=== PATIENT | male | born 1950 | race Caucasian/White ===

== ENCOUNTER → 2024-07-07 | Outpatient (CLI) | payer MEDICARE, BC, SELFPAY ==
[2024-07-07 13:49] LABS: Prostate Specific Antigen 4.87 ng/mL (0-4.00)
== END | disposition home or self-care (01) ==
LOC: COPL 12:51
PROVIDERS: PCP Family Medicine; Referring Provider Family Medicine; Visit Provider Family Medicine
DX: Z12.5 Encounter for screening for malignant neoplasm of prostate (principal)
CPT/HCPCS: 36415; 84153

== ENCOUNTER → 2024-08-01 | Outpatient (CLI) | payer MEDICARE, BC, SELFPAY ==
[2024-08-01 12:18] LABS: Collection Type, Urine Clean Catch
[2024-08-01 14:02] LABS: Bilirubin,Urine Negative (Negative); Blood,Urine Negative (Negative); Clarity,Urine Clear (Clear/Hazy); Color,Urine Yellow (Lt Yel-Yel); Glucose, Urine Negative (Negative); Ketones,Urine Negative (Negative); Leukocyte Esterase,Urine Negative (Negative); Nitrite,Urine Negative (Negative); Protein,Urine Negative (Neg - Trace); RBC,Urine 1 /hpf (0-3); Specific Gravity,Urine 1.027 (1.001-1.035); Squamous Epithelial Cell,Urine < 1 /hpf (0-5); Urobilinogen,Urine Negative mg/dL (0.0-1.0); WBC,Urine < 1 /hpf (0-5)
== END | disposition home or self-care (01) ==
LOC: COPL 11:45 → SLDO 12:04
PROVIDERS: PCP Family Medicine; Referring Provider Family Medicine; Visit Provider Family Medicine
DX: N39.0 Urinary tract infection, site not specified (principal)
CPT/HCPCS: 81001; 87086

== ENCOUNTER 2025-03-23 10:18 | Inpatient (IN) | payer MEDICARE, BC, SELFPAY ==
[2025-03-23] VITALS (13 sets, daily range): BP systolic 72–151; BP diastolic 46–99; PULSE 61–96; RESP 14–91; TEMP 36.3–37.8; O2SAT 92–99; BMI 20.7; BMI 30.1
--- NOTE | 2025-03-23 10:23 | EDNOTE_ITS ---
ED Fall Injury RME/HPI General Chief Complaint: Fall Stated Complaint: FALL Time Seen by Provider: 03/23/25 10:23 Arrival date/time: 03/23/25 10:18 Mode of arrival: EMS Limitations: no limitations RME / HPI RME / HPI Narrative: DR. KIBMLE MAIN ED EVALUATION: Patient is a 75 yo male with medical history notable for hypertension, recent emergency department plan of AMS after having had an unwitnessed fall. Per EMS patient was found on the ground by his . Patient does not remember falling. Unclear if there was any prodromal symptoms prior to the fall. Per EMS patient had repetitive questioning on scene and did not want to come to the hospital. Spoke to the patient over the phone, while on the phone, I advised him that I was concerned about his fall that I did not have an etiology for the fall. While on the phone patient stated that he did not know that he fell. The paramedics and his had already previously told him multiple times that he had fallen. I let the paramedics know that I am concerned that the patient has repetitive questioning and speech and for this reason it is important that he be transported to the emergency department for evaluation. Patient came to the emergency department willingly. complaint: fall Onset (ago): minute(s) Fall from: standing Fall witnessed: no Place fall occurred: home Loss of consciousness: yes Prolonged down time: no Related Data Home Medications ?Medication ?Instructions ?Recorded ?Confirmed amlodipine 5 mg tablet 5 mg PO QDAY 03/23/25 rivastigmine tartrate 1.5 mg 1.5 mg PO BID 03/23/25 capsule vortioxetine 5 mg tablet 5 mg PO DAILY 03/23/2503/23 (Trintellix) Allergies Allergy/AdvReac Type Severity Reaction Status Date / Time No Known Allergies Allergy Verified 04/02/24 06:42 Review of Systems Review of Systems Systems Reviewed: All systems reviewed, normal except as documented Past Medical History Past Medical History CARDIAC: Negative Congestive Heart Failure RESPIRATORY: Negative Chronic Obstructive Pulmonary Disease (COPD) GENITOURINARY: Negative Renal Disease ENDOCRINE: Negative Diabetes Mellitus Type 1 or Diabetes Mellitus Type 2 Social History SMOKING STATUS: Never smoker SUBSTANCE USE: does not use ALCOHOL: Never ED Exam General Limitations: Present no limitations General appearance: Present alert Head Head exam: Present other (1 cm laceration nonbleeding to the left forehead, no postauricular hematoma, no raccoon eyes, intact extraocular muscle movements, pupils equal round and reactive to light) Eye Eye exam: Present PERRL ENT ENT exam: Present normal exam Neck Neck exam: Present normal inspection Chest Chest inspection: Present normal inspection Respiratory Respiratory exam: Present normal lung sounds bilaterally Cardiovascular Cardiovascular exam: Present normal rhythm Abdominal Exam Abdominal exam: Present soft; Absent distention or tenderness Extremities Exam Extremities exam: Present normal inspection, full ROM and tenderness (Nontender to palpation on the right upper extremity nor bilateral lower extremities, no tenderness to palpation in the entire spine, no ttp pelvis, 2+ DP pulses, 2+ radial pulses bilateral upper extremities and lower extremity symmetric intact) Neurological Exam Neurological exam: Present other (Alert and oriented to person, not oriented to situation nor place. Repetitive questioning, forgets conversations that occurred a few minutes prior) Psychiatric Psychiatric exam: Present normal affect Skin Skin exam: Present warm Course Quality Measures none Orders Category Date Time Status Admit to Inpatient Status Routine Admission 03/23/25 13:47 Active Patient Condition Routine Admission 03/23/25 13:47 Ordered Activity as Tolerated Routine Care 03/23/25 13:48 Ordered Bedside COVID-19 Antigen Test NOW Care 03/23/25 10:31 Active Bedside Influenza A&B Antigen Test NOW Care 03/23/25 10:31 Completed EKG (ED ONLY) *Do not use* NOW Care 03/23/25 10:59 Completed Notify provider NEEDED Care 03/23/25 13:47 Active Obtain weight NOW Care 03/23/25 13:46 Active Seizure precautions NOW Care 03/23/25 13:48 Active Diet Regular Diet 03/23/[address] cervical spine wo con Stat Exams 03/23/25 10:[address] head/brain wo con Stat Exams 03/23/25 10:30 Completed CXR [XR chest 1V] Stat Exams 03/23/25 10:31 Completed EKG (ED Only) Stat Exams 03/23/25 10:59 Draft XR humerus LT MIN 2V Stat Exams 03/23/25 10:32 Completed Acetaminophen Stat Lab 03/23/25 10:50 Completed Ammonia Stat Lab 03/23/25 10:50 Completed CBC Stat Lab 03/23/25 10:50 Completed CK [Creatine Kinase] Stat Lab 03/23/25 13:14 Completed CMP [Comprehensive Metabolic Panel] Stat Lab 03/23/25 10:50 Completed CRP [C-Reactive Protein] Stat Lab 03/23/25 13:14 Completed Drug Screen,Urine Stat Lab 03/23/25 12:14 Completed ESR [Sed Rate (ESR)] Stat Lab 03/23/25 13:14 Completed INR [Prothrombin Time with INR] Stat Lab 03/23/25 10:50 Completed Lactate (Lactic Acid) Stat Lab 03/23/25 13:14 Results Mag [Magnesium] Stat Lab 03/23/25 13:14 Completed Phosphorous Stat Lab 03/23/25 13:14 Completed Prolactin* Stat Lab 03/23/25 13:14 Received Salicylate Stat Lab 03/23/25 10:50 Completed T4 (Thyroxine) Stat Lab 03/23/25 10:50 Completed Thyroid Stimulating Hormone Stat Lab 03/23/25 10:50 Completed Troponin I Stat Lab 03/23/25 10:50 Completed Type and Screen Stat Lab 03/23/25 13:13 Ordered UA, C/S IF [Urinalysis, C/S if Indicated] Stat Lab 03/23/25 12:14 Completed VBG [Venous Blood Gas] Stat Lab 03/23/25 13:14 Completed Vitamin B12 Stat Lab 03/23/25 13:14 Completed Acetaminophen Tab [Tylenol Tab] Med 03/23/25 13:46 Active 650 mg PO Q6H PRN Midazolam Inj [Versed Inj] Med 03/23/25 11:41 Discontinued 2 mg IVP X1 ONE Midazolam Inj [Versed Inj] Med 03/23/25 11:41 Discontinued 4 mg .ROUTE .STK-MED ONE Midazolam Inj [Versed Inj] Med 03/23/25 11:41 Discontinued 4 mg IVP X1 ONE Ringers Lactated 1000 ml [Lactated Ringers] 1,000 ml Med 03/23/25 13:06 Discontinued IV 999 mls/hr TET,DIP/PERT AC (Adult)-Tdap [Boostrix Adult (Tdap) Med 03/23/25 10:31 Discontinued Vacc] 0.5 ml IMI .ONCE ONE levETIRAcetam INJ [Keppra Inj] Med 03/23/25 11:42 Discontinued 1,000 mg IVP X1 ONE Code Status Routine Oth 03/23/25 13:46 Ordered Oxygen Delivery PRN RT 03/23/25 13:46 Active Vital Signs Vital signs: Vital Signs Temperature 97.6 F 03/23/25 10:25 Pulse Rate 64 03/23/25 10:25 Respiratory Rate 18 03/23/25 10:25 Blood Pressure 135/90 H 03/23/25 10:25 Pulse Oximetry (%) 95 03/23/25 10:25 Oxygen Delivery Method Room Air 03/23/25 10:25 Fall MDM Narrative MDM Narrative:: Patient is a 75-year-old male to the emergency department after having had an unwitnessed fall at home and having repetitive questioning. Vital signs and exam as listed. Concern for ACS arrhythmia electrolyte abnormality urinary tract infection, intracranial hemorrhage intracranial injury cervical spine injury, fracture of the left upper extremity among others. Ordered labs, CT brain, CT cervical spine EKG as well as x-ray of the left upper extremity. 1140: Patient had a seizure, orders made at this time are congruent with seizure protocol. Patient data External records reviewed:: [facility] previous records Clinical information provided by:: patient Social determinants that could affect healthcare access:: none Patient has the following chronic illnesses:: hypertension How is presenting disease/condition affected by chronic disease/condition?: uneffected by Evaluation data The following diagnostics were reviewed and interpreted by me:: lab results, radiology exam(s) and EKG tracing(s) (My interpretation: EKG performed at 1104 hours, sinus rhythm, rate 66, normal intervals, non specific ST-T wave changes, no cardiac alert) Lab and/or radiology exams considered but not ordered:: none Interpretation Summary: Procedure(s): XR humerus LT MIN 2V Accession Number(s): [id number] cc: Lalito Hill MD; Yolis Kimble MD~ Examination: Humerus 2 views left Technique: Humerus, AP lateral 2 views Date and time of exam: March 23, 2025 1044 hours INDICATIONS: Injury to the arm today, arm pain. FINDINGS: No shoulder fracture or shoulder dislocation Shaft of the humerus intact IMPRESSION: No acute fracture Dictated By: Lalito Hill MD Procedure(s): XR chest 1V Accession Number(s): [id number] cc: Lalito Hill MD; Yolis Kimble MD~ Examination: AP chest single view TECHNIQUE: AP portable upright chest single view Date and time: March 23, 2025 1050 hours INDICATIONS: Weakness today. FINDINGS: Minor subsegmental atelectasis right base Normal heart size Ectatic thoracic aorta. No pneumonia or pulmonary edema IMPRESSION: No active disease. Dictated By: Lalito Hill MD Procedure(s): CT head/brain wo con Accession Number(s): [id number] cc: Lalito Hill MD; Yolis Kimble MD~ Examination: CT brain head without contrast. 2-D sagittal coronal reconstructions Date and time of exam:March 23, 2025 1122 hours INDICATIONS: Syncopal episode and fall this morning CTDI: vol (mGy):54.2 DLP: (mGycm):1150 Technique: Multiple CT axial sections of the brain have been obtained, 5 mm slice thickness. Contrast has not been administered. 2-D sagittal, coronal reconstructions have been obtained Low dose protocols were performed. One or more of the following dose reduction techniques were used; automated exposure control, adjustment of the mA and/or KV according to patient size, use of iterative reconstruction technique. Findings: No significant ventricular enlargement. Moderate cerebral atrophy Intra-axial or extra-axial hemorrhage density is not seen. No mass effect or midline shift Basal cisterns are not remarkable. Fourth ventricle is midline. Cranial vault intact. Impression: Negative for acute hemorrhage, mass effect or midline shift Dictated By: Lalito Hill MD Procedure(s): CT cervical spine [facility] Accession Number(s): [id number] cc: Lalito Hill MD; Yolis Kimble MD~ Examination: CT cervical spine without contrast 2-D sagittal reconstructions 2-D coronal reconstructions 3-D reconstructions. Exam date and time:March 23, 2025, 1122 hours INDICATIONS: Ground-level fall today CTDI:vol (mGy) 17.8 DLP: (mGycm) 4713 Technique: Multiple 2 mm axial sections of the cervical spine have been obtained. The coronal and sagittal reconstructions have been obtained. 3-D reconstructions have been obtained. Low dose protocols were performed. One or more of the following dose reduction techniques were used; automated exposure control, adjustment of the mA and/or KV according to patient size, use of iterative reconstruction technique. Findings: Axial sections demonstrate intact base of the skull. C1 exhibit satisfactory relationship to the odontoid. No acute cervical vertebral body fracture seen. Alignment posterior spinous processes satisfactory. Impression: No acute cervical fracture. Dictated By: Lalito Hill MD Medications / Prescriptions Medications or Prescriptions considered but not ordered:: none Medication administrations:: Medication Administration History Acetaminophen (Acetaminophen 325 Mg Tablet) 650 mg PO Q6H PRN PRN Reason: Fever >101.5 Stop: 04/22/25 13:45 Heparin Sodium (Porcine) (Heparin Sod Inj 5000 Unit/Ml Vial) 5,000 unit SC Q12HR [facility] Stop: 04/06/25 13:59 Midazolam HCl (Midazolam Inj 1 Mg/Ml Vial 2 Ml) 1 mg IVP Q15MIN PRN PRN Reason: BREAKTHROUGH SEIZURES Stop: 03/28/25 13:54 Ondansetron HCl (Ondansetron Inj 2 Mg/Ml Inj 2 Ml) 4 mg IVP Q6H PRN; Protocol PRN Reason: NAUSEA OR VOMITING Stop: 04/22/25 13:50 Pantoprazole Sodium (Pantoprazole Inj 40 Mg Vial) 40 mg IVP QDAY [facility] Stop: 04/23/25 08:59 Discontinued Medications Diphtheria/Tetanus/Acell Pertussis (Diphth,Pertuss(Acell),Tet Vac 0.5 Ml Syr- Adult) 0.5 ml IMi .ONCE ONE Stop: 03/23/25 10:32 Last Admin: 03/23/25 10:49 Dose: 0.5 ml Documented By: JEREMIE Lactated Ringer's (Lactated Ringers) 1,000 mls @ 999 mls/hr IV .Q1H1M ONE Stop: 03/23/25 14:06 Last Admin: 03/23/25 13:12 Dose: 999 mls/hr Documented By: JEREMIE Levetiracetam (Levetiracetam Inj 100 Mg/Ml Vial 5ml) 1,000 mg IVP X1 ONE Stop: 03/23/25 11:43 Last Admin: 03/23/25 12:06 Dose: 1,000 mg Documented By: JEREMIE Midazolam HCl (Midazolam Inj 1 Mg/Ml Vial 2 Ml) 2 mg IVP X1 ONE Stop: 03/23/25 11:42 Last Admin: 03/23/25 12:00 Dose: Not Given Documented By: JEREMIE Non-Admin Reason: Duplicate Medication on eMAR Midazolam HCl (Midazolam Inj 1 Mg/Ml Vial 2 Ml) 4 mg IVP X1 ONE Stop: 03/23/25 11:42 Last Admin: 03/23/25 11:42 Dose: 4 mg Documented By: JOSE ALFREDO Midazolam HCl (Midazolam Inj 1 Mg/Ml Vial 2 Ml) Confirm Administered Dose 4 mg .ROUTE .STK-MED ONE Stop: 03/23/25 11:42 Last Admin: 03/23/25 11:49 Dose: Not Given Documented By: JOSE ALFREDO Non-Admin Reason: Duplicate Medication on eMAR Potassium Phos/Sodium Phos ([facility] 1 Packet (1.5 Gm)) 1 packet PO X1 ONE Stop: 03/23/25 13:58 see above Consultations Consultation(s) initiated? (list below): Yes Consultation #1 (Physician, Specialty, Details): Discussed test HPI, PMHx, lab, radiology results and/or management with resident working with the hospitalist. Will admit for further evaluation and management. Accepts patient for admission. Diagnosis Fall Differential Diagnosis: other (Syncope, traumatic brain injury, intracranial hemorrhage, CVA/ TIA.) Most likely diagnosis given after review of the tests above:: Seizure Fall Head laceration Flue Admission Indicated Admission indicated?: indicated Admission Request Was there a request for admission?: Yes Admission Attestation Admission request attestation: Discussed case with [] from Hospitalist service regarding admission. Discussed patients ED course, exam findings, labs, and radiology results. The Hospitalist [agrees,declines] to accept the patient for admission. Disposition Plan Disposition Plan: Admit Critical Care Time Critical Care Time Critical Care Time: Yes Total Critical Care Time (min.): 40 Attestation: The high probability of sudden, clinically significant deterioration in the patient?s condition required the highest level of my preparedness to intervene urgently. The services I provided to this patient were to treat and/or prevent clinically significant deterioration. Services included the following: chart data review, reviewing nursing notes and/or old charts, documentation time, healthcare consultant collaboration regarding findings and treatment options, medication orders and management, direct patient care, vital sign assessments and ordering, interpreting and reviewing diagnostic studies and lab tests. Aggregate critical care time includes only time during which I was engaged in work directly related to the patient?s care, as described above, whether at bedside or elsewhere in the Emergency Department. It did not include time spent performing other reported procedures or the services of residents, students, jennifer ses or physician assistants. Discharge Plan Plan Patient Disposition: Admit Acute Care w/in Hospital Problem List Clinical Impression: Seizure, Fall, Laceration of head, Flu
--- NOTE | 2025-03-23 10:30 | XR_ITS ---
Examination: CT brain head without contrast. 2-D sagittal coronal reconstructions Date and time of exam:March 23, 2025 1122 hours INDICATIONS: Syncopal episode and fall this morning CTDI: vol (mGy):54.2 DLP: (mGycm):1150 Technique: Multiple CT axial sections of the brain have been obtained, 5 mm slice thickness. Contrast has not been administered. 2-D sagittal, coronal reconstructions have been obtained Low dose protocols were performed. One or more of the following dose reduction techniques were used; automated exposure control, adjustment of the mA and/or KV according to patient size, use of iterative reconstruction technique. Findings: No significant ventricular enlargement. Moderate cerebral atrophy Intra-axial or extra-axial hemorrhage density is not seen. No mass effect or midline shift Basal cisterns are not remarkable. Fourth ventricle is midline. Cranial vault intact. Impression: Negative for acute hemorrhage, mass effect or midline shift
--- NOTE | 2025-03-23 10:30 | XR_ITS ---
Examination: CT cervical spine without contrast 2-D sagittal reconstructions 2-D coronal reconstructions 3-D reconstructions. Exam date and time:March 23, 2025, 1122 hours INDICATIONS: Ground-level fall today CTDI:vol (mGy) 17.8 DLP: (mGycm) 4713 Technique: Multiple 2 mm axial sections of the cervical spine have been obtained. The coronal and sagittal reconstructions have been obtained. 3-D reconstructions have been obtained. Low dose protocols were performed. One or more of the following dose reduction techniques were used; automated exposure control, adjustment of the mA and/or KV according to patient size, use of iterative reconstruction technique. Findings: Axial sections demonstrate intact base of the skull. C1 exhibit satisfactory relationship to the odontoid. No acute cervical vertebral body fracture seen. Alignment posterior spinous processes satisfactory. Impression: No acute cervical fracture.
--- NOTE | 2025-03-23 10:31 | XR_ITS ---
Examination: AP chest single view TECHNIQUE: AP portable upright chest single view Date and time: March 23, 2025 1050 hours INDICATIONS: Weakness today. FINDINGS: Minor subsegmental atelectasis right base Normal heart size Ectatic thoracic aorta. No pneumonia or pulmonary edema IMPRESSION: No active disease.
--- NOTE | 2025-03-23 10:32 | XR_ITS ---
Examination: Humerus 2 views left Technique: Humerus, AP lateral 2 views Date and time of exam: March 23, 2025 1044 hours INDICATIONS: Injury to the arm today, arm pain. FINDINGS: No shoulder fracture or shoulder dislocation Shaft of the humerus intact IMPRESSION: No acute fracture
[2025-03-23] MEDS: DIPHTH,PERTUSS(ACELL),TET VAC 0.5 ML SYR- ADULT IMi (10:49)
[2025-03-23 10:59] LABS: Basophils # (Auto) 0.1 Thou/mm3 (0.0-0.2); Basophils % (Auto) 1 % (0-2.5); Eosinophils # (Auto) 0.2 Thou/mm3 (0.0-0.5); Eosinophils % (Auto) 2 % (0-10); Hematocrit 46.1 % (41.0-53.0); Hemoglobin 15.6 g/dL (13.5-16.0); Immature Granulocytes Auto 0.03 Thou/mm3 (0.00-0.00); Lymphocytes # (Auto) 3.2 Thou/mm3 (1.0-4.8); Lymphocytes % (Auto) 40 % (10-50); Mean Corpuscular HGB Conc 33.8 g/dl (31.0-37.0); Mean Corpuscular Hemoglobin 29.6 pg (25.0-35.0); Mean Corpuscular Volume 88 fL (80-100); Monocytes # (Auto) 0.7 Thou/mm3 (0.0-0.8); Monocytes % (Auto) 9 % (0-12); Neutrophils # (Auto) 3.8 Thou/mm3 (1.8-7.7); Neutrophils % (Auto) 47 % (37-80); Nucleated Red Blood Cell # 0.00 Thou/mm3 (0.00-0.00); Nucleated Red Blood Cell % 0 /100 WBC (0); Platelet Count 158 Thou/mm3 (140-440); RDW Standard Deviation 42.0 fL (35.1-43.9); Red Blood Count 5.27 Miln/mm3 (4.50-5.90); White Blood Count 8.0 Thou/mm3 (3.8-10.6)
--- NOTE | 2025-03-23 10:59 | EKG_ITS ---
[facility] Test Date: 2025-03-23 Pat Name: KATIE CHOI Department: Room: - Gender: Male Magnetic Observer: : 1950 Requested By: Yolis Menchaca Order Number: [id number] Reading MD: Yolis Menchaca Measurements Intervals [place] Rate: 66 P: 232 [place]: 107 QRS: -16 QRSD: 89 T: 25 QT: 402 QTc: 424 Interpretive Statements ECTOPIC ATRIAL RHYTHM WITH SHORT TX INTERVAL ABNORMAL RHYTHM ECG No previous ECG available for comparison /store/S0/[id number]/ecg/[id number].pdf
[2025-03-23 11:15] LABS: INR 1.0 (0.9-1.3); Prothrombin Time 11.0 Seconds (9.0-12.2)
[2025-03-23 11:18] LABS: Ammonia < 10 uMol/L (11-32)
[2025-03-23 11:20] LABS: T4 (Thyroxine) 6.1 mcg/dL (4.5-10.9)
[2025-03-23 11:24] LABS: Acetaminophen < 2.0 mcg/mL (10.0-20.0); Alanine Aminotransferase 18 U/L (10-49); Albumin, Serum 4.5 gm/dL (3.4-4.8); Albumin/Globulin Ratio 2.4 (1.2-2.2); Alkaline Phosphatase 52 U/L (46-116); Anion Gap 11 (7-16); Aspartate Amino Transferase 19 U/L (0-34); BUN/Creatinine Ratio 11 Ratio (12-20); Bilirubin,Total 0.9 mg/dL (0.3-1.2); Blood Urea Nitrogen 13 mg/dL (9-23); Calcium 9.7 mg/dL (8.3-10.6); Calcium (Corrected) 9.7 mg/dL (8.5-10.1); Carbon Dioxide 27.1 mMol/L (20.0-31.0); Chloride 105 mMol/L (98-107); Creatinine (Component) 1.2 mg/dL (0.6-1.3); Estimated Creatinine Clearance 60.7 mL/min (>60); Globulin 1.9 gm/dL (2.3-3.5); Glucose 100 mg/dL (74-106); Osmolality,Calculated 285 (275-295); Potassium 3.4 mMol/L (3.4-5.1); Salicylate < 3.0 mg/dL; Sodium 143 mMol/L (136-145); Thyroid Stimulating Hormone 4.45 uIU/mL (0.55-4.78); Total Protein 6.4 gm/dL (5.7-8.2); Troponin I 0.027 ng/mL (0.0-0.045); eGFR > 60 See Note
[2025-03-23] MEDS: MIDAZOLAM INJ 1 MG/ML VIAL 2 ML 4 MG IVP (11:42)
--- NOTE | 2025-03-23 11:42 | PC.NURSE ---
Patient had a full tonic clonic seizure lasting approx 1 minute. Patient turned to side, O2 placed. MD called to bedside. Med orders received.
[2025-03-23] MEDS: levETIRAcetam INJ 100 MG/ML VIAL 5ML 1000 MG IVP (12:06)
[2025-03-23 12:16] LABS: Collection Type, Urine Catheter; Squamous Epithelial Cell,Urine 0 /hpf (0-5)
[2025-03-23 12:37] LABS: Amphetamine/Methamp Scrn,U Negative (Negative); Barbiturate Screen,Urine Negative (Negative); Benzodiazepines Screen,Urine Negative (Negative); Benzoylecgonine Screen, Ur Negative (Negative); Fentanyl Screen,Urine Negative (Negative); Opiate Screen,Urine Negative (Negative); THC Screen,Urine Negative (Negative)
[2025-03-23 12:56] LABS: Bilirubin,Urine Negative (Negative); Blood,Urine Negative (Negative); Clarity,Urine Clear (Clear/Hazy); Color,Urine Yellow (Lt Yel-Yel); Culture Indicated,Urine Not Indicated; Glucose, Urine Negative (Negative); Hyaline Casts,Urine < 1 /hpf (0-1); Ketones,Urine Negative (Negative); Leukocyte Esterase,Urine Negative (Negative); Nitrite,Urine Negative (Negative); PH,Urine 6.5 (5.0-7.0); Protein,Urine 1+ (Neg - Trace); RBC,Urine 2 /hpf (0-3); Specific Gravity,Urine 1.017 (1.001-1.035); Urobilinogen,Urine Negative mg/dL (0.0-1.0); WBC,Urine 4 /hpf (0-5)
[2025-03-23] MEDS: RINGERS LACTATED 1000 ML 1,000 ML 999 ML IV (13:12)
[2025-03-23 13:28] LABS: Base Excess, Venous -5 (-3-3); O2 Saturation, Venous 83 % (96-97); PCO2, Venous 39 mmHg (36-56); PO2, Venous 50 mmHg (15-58); pH, Venous 7.33 (7.33-7.66)
[2025-03-23 13:42] LABS: Lactate (Lactic Acid) 4.5 mMol/L (0.4-2.0)
[2025-03-23 13:52] LABS: C-Reactive Protein < 0.5 mg/dL (0.0-0.9); Creatine Kinase 73 U/L (34-171); Magnesium 2.0 mg/dL (1.6-2.6); Phosphorous 1.9 mg/dL (2.4-5.1)
--- NOTE | 2025-03-23 13:59 | ESHP_ITS ---
<Statement entered by Jackie Aguillon MD - 03/24/25 10:28> Patient was seen and examined at bedside. I agree on the assessment and plan on this note as documented by resident Luzmaria Thomason MD PGY1. 75-year-old male with past medical history of hypertension and ?dementia/depression admitted to [facility] for seizures management, patient had 2 episodes of seizures 1 witnessed by ED staff was given 4 mg Versed for management in the ED, was consulted by emergency department for admission. While assessing at bedside patient's MAP noted to be 55, was given 1 L LR bolus on pressure bag, CT head was negative considering patient did hit head during the seizure episode, bedside FAST exam done with ED attending Dr. Lamin otto. MAP stable post fluid resuscitation, will start on maintenance fluid. Admitted to telemetry for seizure workup, patient also noted to be influenza A positive started on Tamiflu, EEG ordered, neurology consulted for further recommendations. Disposition telemetry pending neurology workup. Case discussed with attending Dr. Dhiraj Aguillon MD PGY-2 Documentation for date of: 03/23/25 HPI History of Present Illness Chief complaint: altered mental status and seizure History of present illness: Mr. Trinidad is a 75 year of male with past medical medical history of hypertension BIBA to ED on 03/23/2025 for altered mental status after unwitnessed fall. Per , this morning while the patient was getting ready in the bathroom she heard a thump. She went to check up on him and found the patient lying on the floor on the left side. Per patient before the seizure episode he had no headache, lightheadedness, weakness, shortness of breath no tinnitis. He also had a history of seizure in 2023 for which he followed with neurology and was discharged with no anti-seizure medications in the ED during the postictal phase patient was speaking incoherently and drowsy. Patient had tonic-clonic seizure that lasted about 50 seconds witnessed by ED staff. No urinary or fecal incontinence post-seizure. During examination patient was drowsy with low MAP averaging 58 and BP 72/51 mmHg, after 1x ringers lactate fluids patient MAP increase significantly and became alert and conversant. He denies chills, fatigue, shortness of breath, chest pain and bodyaches. He only endorses left shoulder pain due to the fall. ED Course: -Initial vitals were blood pressure 151/81, pulse 64, RR 18, temp 97.6, O2 sat 96% on 15 L OxyMax -Labs significant for bun/cr 11, ammonia< 10, Lactate 4.5, Phos 1.9, UA negative, Utox negative - Imaging included spine CT no acute cervical fracture, head CT negative for acute hemorrhage, chest x-ray showed mild segmental atelectasis right base, humerus x-ray shows no shoulder fracture or dislocation, EKG normal -In the ED, patient was given 1 LR bolus, 4 mg Versed, 1x Keppra, Tdap vaccine -Patient was admitted for AMS and seizures work up and management. Review of Systems Review of systems otherwise negative except what is mentioned above. Past Medical History: Hypertension Family History: Noncontributory Surgical History: N/A Social History: Denies history of smoking, denies current alcohol use, denies recreational drug use Current Medications: (Source: Patient) amlodipine 5 mg, rivastigmine 1.5 mg twice daily, vortioxetine 5 mg daily Allergies: No known drug allergies Exam Vital Signs Temp Pulse Resp BP Pulse Ox O2 Del Method O2 Flow Rate 97.6 F 66 18 127/89 H 98 Oxy Mask 8 03/23/25 10:25 03/23/25 13:30 03/23/25 13:30 03/23/25 13:30 03/23/25 13:30 03/23/25 13:30 03/23/25 13:30 Narrative Exam Physical Exam General: Initially drowsy but now awake and in no acute distress. Conversational and non-toxic appearing. HEENT: 1cm laceration nonbleeding to left forehead. Normocephalic, mucous membranes moist. Heart: Regular rate and rhythm, normal S1 and S2, no murmurs. Lungs: Clear to auscultation with no wheezing or crackles. Abdomen: Soft, nondistended, nontender, positive bowel sounds. ?No guarding or rebound tenderness. Neurologic: Alert and oriented x3, no gross neurological deficit, and patient able to move all 4 extremities. Extremities: limited range of motion of Left shoulder(due to fall) No edema. Skin: No rash or ecchymoses. Results: Labs 03/24/25 05:31 03/24/25 05:31 Labs: Short CBC 03/23/25 Range/Units 10:50 WBC 8.0 (3.8-10.6) Thou/mm3 Hgb 15.6 (13.5-16.0) g/dL Hct 46.1 (41.0-53.0) % Plt Count 158 (140-440) Thou/mm3 BMP 03/23/25 10:50 Sodium 143 Potassium 3.4 Chloride 105 Carbon Dioxide 27.1 BUN 13 Creatinine 1.2 Glucose 100 Calcium 9.7 Cardiac Enzymes 03/23/25 03/23/25 Range/Units 10:50 13:14 Total Creatine Kinase 73 (34-171) U/L Troponin I 0.027 (0.0-0.045) ng/mL Liver Function 03/23/25 Range/Units 10:50 Total Bilirubin 0.9 (0.3-1.2) mg/dL AST 19 (0-34) U/L ALT 18 (10-49) U/L Alkaline Phosphatase 52 (46-116) U/L Albumin 4.5 (3.4-4.8) gm/dL Urine 03/23/25 Range/Units 12:14 Urine Color Yellow (Lt Yel-Yel) Urine Clarity Clear (Clear/Hazy) Urine pH 6.5 (5.0-7.0) Ur Specific [place] 1.017 (1.001-1.035) Urine Protein 1+ A (Neg - Trace) Urine Glucose (UA) Negative (Negative) ABG Interpretation ABG results: 03/23/25 13:14 VBG pH 7.33 VBG pCO2 39 VBG pO2 50 VBG Base Excess -5 L Quality Measures Quality Measures none Advance care planning discussed with:: patient and spouse Medications Home Medications and Allergies Home Medications ?Medication ?Instructions ?Recorded ?Confirmed ?Type amlodipine 5 mg tablet 5 mg PO QDAY 03/23/25 History rivastigmine tartrate 1.5 mg 1.5 mg PO BID 03/23/25 History capsule vortioxetine 5 mg tablet 5 mg PO DAILY 03/23/2503/23 History (Trintellix) Allergies Allergy/AdvReac Type Severity Reaction Status Date / Time No Known Allergies Allergy Verified 04/02/24 06:42 Visit Medications Acetaminophen (Acetaminophen 325 Mg Tablet) 650 mg PO Q6H PRN PRN Reason: Fever >101.5 Stop: 04/22/25 13:45 Heparin Sodium (Porcine) (Heparin Sod Inj 5000 Unit/Ml Vial) 5,000 unit SC Q12HR DINO Stop: 04/06/25 13:59 Lactated Ringer's (Lactated Ringers) 1,000 mls @ 999 mls/hr IV .Q1H1M ONE Stop: 03/23/25 14:06 Last Admin: 03/23/25 13:12 Dose: 999 mls/hr Midazolam HCl (Midazolam Inj 1 Mg/Ml Vial 2 Ml) 1 mg IVP Q15MIN PRN PRN Reason: BREAKTHROUGH SEIZURES Stop: 03/28/25 13:54 Ondansetron HCl (Ondansetron Inj 2 Mg/Ml Inj 2 Ml) 4 mg IVP Q6H PRN; Protocol PRN Reason: NAUSEA OR VOMITING Stop: 04/22/25 13:50 Pantoprazole Sodium (Pantoprazole Inj 40 Mg Vial) 40 mg IVP QDAY [facility] Stop: 04/23/25 08:59 Potassium Phos/Sodium Phos (Naph,[facility] Mbdb 1 Packet (1.5 Gm)) 1 packet PO X1 ONE Stop: 03/23/25 13:58 Discontinued Medications Diphtheria/Tetanus/Acell Pertussis (Diphth,Pertuss(Acell),Tet Vac 0.5 Ml Syr- Adult) 0.5 ml IMi .ONCE ONE Stop: 03/23/25 10:32 Last Admin: 03/23/25 10:49 Dose: 0.5 ml Levetiracetam (Levetiracetam Inj 100 Mg/Ml Vial 5ml) 1,000 mg IVP X1 ONE Stop: 03/23/25 11:43 Last Admin: 03/23/25 12:06 Dose: 1,000 mg Midazolam HCl (Midazolam Inj 1 Mg/Ml Vial 2 Ml) 2 mg IVP X1 ONE Stop: 03/23/25 11:42 Last Admin: 03/23/25 12:00 Dose: Not Given Midazolam HCl (Midazolam Inj 1 Mg/Ml Vial 2 Ml) 4 mg IVP X1 ONE Stop: 03/23/25 11:42 Last Admin: 03/23/25 11:42 Dose: 4 mg Assessment & Plan Plan Mr. Trinidad a 75-year-old male past medical significant for hypertension BIBA to ED on 03/23/25 for altered mental status and unwitnessed seizure. Admitted for seizure workup and management. #Witnessed tonic-clonic seizures episode #Acute Encephalopathy 09/04 # Influenza A positive #Status post fall Patient has history of seizure episodes in 2023 for which he follows with Dr. Smalls. Followed outpatient after 1 episode of seizure in 2023 not on any seizure medication. Today patient has weakness around 4 in the morning, and weakness, possibly had a seizure episode at home per family. Witnessed tonic-clonic seizure in the ED. On admission mental status was altered and oriented x2. Underlying acute encephalopathy likely due to seizures, possible underlying viral infectious etiology, Head CT is negative, electrolytes within normal limit, utox negative Patient currently requiring supplemental oxygen, likely secondary to Versed, will wean off Chest x-ray unremarkable for underlying pneumonia, incidentally found to be flu positive in the emergency department Reports fall at home, complains of some pain in left shoulder, cervical spine CT and humerus x-ray unremarkable Plan - Started on oseltamivir 75 mg p.o. twice daily (03/23/25)- - Ringer lactate maintenance 1L IVF - Diazepam 5 mg IVP Q15min PRN for seizure - EEG ordered - Neurology consulted, recommendation appreciated - CBC, CMP daily - Neuro check Q4 - Swallow screen test - Seizure precautions - Aspiration precaution - Physical therapy referral - Speech therapy referral - COVID 19 antigen test - Monitor lactate levels if still elevated more IV fluids #Elevated lactate Likely secondary to seizure episode, ?Flu positive Lactate 4.5, was given 1 L fluid bolus - Monitor follow-up lactic # Primary hypertension Patient has a history of hypertension for which she is well-controlled on medication. On home medication amlodipine 5 mg. Plan - Hold home meds - Pending med rec #?Dementia/depression Patient medicine list include medications such as vortioxetine, rivastigmine started by PCP. Patient and his unclear about the reason for these medications. Plan - Will consider reaching out to PCP Hospital management: Lines: peripheral IV Diet: Regular Bowel: NA GI prophylaxis: Protonix 40 mg IVP DVT prophylaxis: Heparin SC Disposition: tele for seizure precaution CODE STATUS: Full code Patient seen and assessed under supervision of attending physician Dr. Garcia and discuss with senior resident Dr. Aguillon PGY-2 Luzmaria Thomason MD PGY-1, Internal Medicine Attending Provider Attestation/Addendum I attest that I was physically present for the evaluation, physical examination, lab and imaging review of the patient with the residents. I discussed the case with the residents and agree with the findings and plans of care as documented above. After examination of the patient and review of the clinical data I feel that this patient needs admission to the hospital for further treatment/evaluation . Patient is a 75 years old male with past medical history of hypertension who was brought in by ambulance to the ED for unwitnessed fall and altered mental status. As per patient's at bedside, she heard a thump this morning while patient was getting ready in the bathroom, upon reaching, he was found to be laying on the floor. Patient states that he did not have any lightheadedness, headache or weakness prior to the episode, he does not have memory of the episode. Patient had a history of seizure in 2023, for which he was discharged without antiepileptics. In the ED, patient had an episode of witnessed generalized tonic-clonic seizure lasted about 50 seconds. Patient received 4 mg of Versed and 1 g loading dose Keppra. Patient was drowsy at the time of examination likely secondary to medications, but was able to engage in conversation and appeared to be oriented x 4. We will admit the patient for management of acute encephalopathy, likely secondary to tonic-clonic seizure episode. Ground-level fall. We will obtain neurology consult, EEG. Order diazepam for breakthrough seizure, seizure precautions, neurochecks, aspiration precaution, physical and speech therapy. Noted to have elevated lactate, started on IV hydration. Patient tested positive for influenza A, started on oseltamivir. Dhiraj Garcia MD
[2025-03-23 14:03] LABS: Vitamin B12 537 pg/mL (211-911)
[2025-03-23 14:29] LABS: Sed Rate (ESR) 2 mm/hr (0-20)
[2025-03-23] MEDS: RINGERS LACTATED 1000 ML 1,000 ML 75 ML IV (15:06)
[2025-03-23] MEDS: HEPARIN SOD INJ 5000 UNIT/ML VIAL SC ×2 (15:06→20:36)
[2025-03-23] MEDS: OSELTAMIVIR 75 MG CAPSULE PO ×2 (15:06→20:36)
--- NOTE | 2025-03-23 15:09 | PC.SS ---
Patient is a 75 year old male presenting to the hospital for seizures. ADJUSTER ARBITRATOR conducted bedside contact with patient, at bedside was Daiana Trinidad. Patient gave consent for to be present in the room. Patient was alert and oriented. Patient reports he lives with his , does not use medical equipment and is able to ambulate independently. Patient is retired. Patient stated that his PCP is Dr. Cabezas last visit was three weeks ago. Patient?s pharmacy of choice is [facility]. Patient stated that he would like to d/c home once medically cleared and his will provide transportation. Patient stated that his decision maker is his Daiana Owenanibal PH: [phone]. PCP: Dr. Swanson D/C: Home Decision maker: Daiana Trinidad PH: [phone].
--- NOTE | 2025-03-23 15:22 | PC.SS ---
DAY HABILITATION SUPERVISOR notified registration that patients next of kin information is incorrect.
[2025-03-23 16:23] LABS: Reflex Lactate? Y
[2025-03-23 17:05] LABS: Lactic Acid, 3 HR 1.8 mMol/L (0.4-2.0)
[2025-03-23] MEDS: NAPH,KPH MBDB 1 PACKET (1.5 GM) PO (17:33)
--- NOTE | 2025-03-23 18:48 | PD.RESCONSUL ---
HPI Data of Consult Requesting Physician: Dhiraj Garcia MD Admitting Provider: Dhiraj Garcia MD Attending Provider: Dhiraj Garcia MD Primary Care Provider: Luca Cabezas MD Consult Narrative History of present illness: CC: CC: ground level fall & confused Patient is a 75 year old male with a past medical history of Hypertension and history of abnormal MRI, likely early dementia, with previous history of single seizure who presented to the emergency room via EMS with chief concern of ground level fall in the shower with concern for confusion. Per family at bedside, patient was found on the group from a ground levele fall unwitness. Patient was found altered and unable to answer questions. Concern for post-ictal state. Increased SOB noted. Patient was noted to be drooling. In the ER, second seizure witness with drooling and possible tonic-clonic movement and post-ictal noted again. Patient verified lesion on side of tongue, likely occurred during seizure. Salma has previous history of seizure. Salma's grandson, history of seizure. ER: Vitals: 135/90, HR 64, RR 18, T 97.6, spO2 95% on 15 L oxy mask VBG: pH 7.33, CO2 39, pO2 50 WBC 8.0 hg 15.6 hct 46.1, plt 158 CMP: Na 143, K 3.4, Chloride 105, Bicarb 27.1, BUN 13 Cr 1.2 Lactic Acid 4.5, 1.8 [address] Head: Negative Humerus x-ray: No acute fracture PMH: HTN, abnormal MRI, likely early dementia, and previous history of seizure Past Surgical History: appendectomy Past Family History: Grandson has history of seizure Home Medication: Amlodipine, Rivastigmine, and Trintellix (Brintellix/canadan brand) Social History: denied illict drug use Allergies: none Neuro consulted given seizure. cc:: cc: Dhiraj Garcia MD Review of Systems Review of Systems Narrative Review of Systems: General appearance: NO weight change, NO fatigue, NO weakness, NO fever, NO chills, NO night sweats, No cough Skin: NO rash, NO itching, NO sores, NO moles HEENT: yes Trauma-secondary to fall, NO nausea, NO vomiting, NO visual changes, NO blurry vision, NO double vision, NO tinnitus, NO vertigo, NO ear discharge, NO rhinorrhea, NO stuffiness, NO sneezing, NO allergy, NO epistaxis. NO Hoarseness, NO sore throat, NO swollen neck. Cardiac: NO Palpitations, NO dyspnea on exertion, NO orthopnea, NO paroxysmal nocturnal dyspnea, NO edema Respiratory: Yes Shortness of Breath, NO Wheezing, NO Cough, NO Sputum, NO hemoptysis GI:NO appetite, NO nausea, NO vomiting, NO dysphagia, NO changes in bowel frequency, NO stool color, NO diarrhea, NO constipation, NO hemetemesis, NO hemorrhoids, NO melena, NO hematechezia, NO abdominal pain, NO jaundice Renal: NO frequency, NO hesitancy, NO urgency, NO hematuria, NO nocturia, NO incontinence MSK: NO muscle weakness, NO gout, NO arthritis, NO muscle stiffness Neuro: NO headaches, Yes tremors, Yes weakness, NO paralysis, YEs seizures, NO loss of consciousness, NO numbness, ground level fall Hem: NO anemia, NO easy bruising/bleeding, NO petechiae, NO purpura Endo: NO heat/cold intolerance, NO excessive sweating, NO polyuria, NO polydipsia, NO polyphagia, NO thyroid problems, NO diabetes Pysch: NO mood, NO anxiety, NO depression Exam Vital Signs Temp Pulse Resp BP Pulse Ox O2 Del Method O2 Flow Rate 97.4 F 77 14 151/99 H 94 L Room Air 3 03/23/25 17:15 03/23/25 17:15 03/23/25 17:15 03/23/25 17:15 03/23/25 17:15 03/23/25 17:15 03/23/25 17:10 Narrative Exam General Appearance: Alert & Oriented X3, well-nourished male who is lying in bed in no acute distress. About 3 inch front skull laceration, superficial. HEENT: Skull symmetrical and atraumatic. Conjunctivae pin and moist. Pupils equal, round, reactive to light and accommodation (PERRL). Bite mike on left lateral side of tongue. Cardio: Normal Rate and Rhythm with S1 and S2 heart sounds. No murmurs or extra heart sounds auscultated. No bruits on carotid auscultation. No peripheral edema or cyanosis. Lungs: Symmetric with good expansion. Chest and back non-tender. Breath sounds vesicular without crackles, wheezing or rhonchi Abdomen: Non-tender, Non-distended, Normal Reactive Bowel Sounds Neuro: Alert, cooperative, oriented to person, place, and time. Speech clear. CN grossly intact. Upper motor strength 5/5 and Lower motor strength 5/5. Sensation intact. Results Labs 03/23/25 10:50 03/23/25 10:50 Labs: Short CBC 03/23/25 Range/Units 10:50 WBC 8.0 (3.8-10.6) Thou/mm3 Hgb 15.6 (13.5-16.0) g/dL Hct 46.1 (41.0-53.0) % Plt Count 158 (140-440) Thou/mm3 BMP 03/23/25 10:50 Sodium 143 Potassium 3.4 Chloride 105 Carbon Dioxide 27.1 BUN 13 Creatinine 1.2 Glucose 100 Calcium 9.7 Cardiac Enzymes 03/23/25 03/23/25 Range/Units 10:50 13:14 Total Creatine Kinase 73 (34-171) U/L Troponin I 0.027 (0.0-0.045) ng/mL Liver Function 03/23/25 Range/Units 10:50 Total Bilirubin 0.9 (0.3-1.2) mg/dL AST 19 (0-34) U/L ALT 18 (10-49) U/L Alkaline Phosphatase 52 (46-116) U/L Albumin 4.5 (3.4-4.8) gm/dL Urine 03/23/25 Range/Units 12:14 Urine Color Yellow (Lt Yel-Yel) Urine Clarity Clear (Clear/Hazy) Urine pH 6.5 (5.0-7.0) Ur Specific [place] 1.017 (1.001-1.035) Urine Protein 1+ A (Neg - Trace) Urine Glucose (UA) Negative (Negative) ABG Interpretation ABG results: 03/23/25 13:14 VBG pH 7.33 VBG pCO2 39 VBG pO2 50 VBG Base Excess -5 L Quality Measures Quality Measures none Advance care planning discussed with:: patient Medications Home Medications and Allergies Home Medications ?Medication ?Instructions ?Recorded ?Confirmed ?Type amlodipine 5 mg tablet 5 mg PO QDAY 03/23/25 03/23/25 History rivastigmine tartrate 1.5 mg 1.5 mg PO BID 03/23/25 03/23/25 History capsule vortioxetine 5 mg tablet 5 mg PO DAILY 03/23/25 03/23/25 History (Trintellix) Allergies Allergy/AdvReac Type Severity Reaction Status Date / Time No Known Allergies Allergy Verified 04/02/24 06:42 Visit Medications Acetaminophen (Acetaminophen 325 Mg Tablet) 650 mg PO Q6H PRN PRN Reason: Fever >101.5 Stop: 04/22/25 13:45 Diazepam (Diazepam Inj 5 Mg/Ml Vial 2 Ml) 5 mg IVP Q15MIN PRN PRN Reason: Seizure Activity Heparin Sodium (Porcine) (Heparin Sod Inj 5000 Unit/Ml Vial) 5,000 unit SC Q12HR DINO Stop: 04/06/25 13:59 Last Admin: 03/23/25 15:06 Dose: 5,000 unit Lactated Ringer's (Lactated Ringers) 1,000 mls @ 75 mls/hr IV .[id number] [facility] Stop: 03/24/25 04:05 Last Admin: 03/23/25 15:06 Dose: 75 mls/hr Ondansetron HCl (Ondansetron Inj 2 Mg/Ml Inj 2 Ml) 4 mg IVP Q6H PRN; Protocol PRN Reason: NAUSEA OR VOMITING Stop: 04/22/25 13:50 Oseltamivir Phosphate (Oseltamivir 75 Mg Capsule) 75 mg PO BID DINO Stop: 03/30/25 14:44 Last Admin: 03/23/25 15:06 Dose: 75 mg Pantoprazole Sodium (Pantoprazole Inj 40 Mg Vial) 40 mg IVP QDAY [facility] Stop: 04/23/25 08:59 Discontinued Medications Diphtheria/Tetanus/Acell Pertussis (Diphth,Pertuss(Acell),Tet Vac 0.5 Ml Syr- Adult) 0.5 ml IMi .ONCE ONE Stop: 03/23/25 10:32 Last Admin: 03/23/25 10:49 Dose: 0.5 ml Lactated Ringer's (Lactated Ringers) 1,000 mls @ 999 mls/hr IV .Q1H1M ONE Stop: 03/23/25 14:06 Last Infusion: 03/23/25 14:00 Dose: Infused Lactated Ringer's (Lactated Ringers) 1,000 mls @ 125 mls/hr IV .Q8H DINO Stop: 04/22/25 14:34 Last Admin: 03/23/25 18:14 Dose: Not Given Levetiracetam (Levetiracetam Inj 100 Mg/Ml Vial 5ml) 1,000 mg IVP X1 ONE Stop: 03/23/25 11:43 Last Admin: 03/23/25 12:06 Dose: 1,000 mg Midazolam HCl (Midazolam Inj 1 Mg/Ml Vial 2 Ml) 2 mg IVP X1 ONE Stop: 03/23/25 11:42 Last Admin: 03/23/25 12:00 Dose: Not Given Midazolam HCl (Midazolam Inj 1 Mg/Ml Vial 2 Ml) 4 mg IVP X1 ONE Stop: 03/23/25 11:42 Last Admin: 03/23/25 11:42 Dose: 4 mg Midazolam HCl (Midazolam Inj 1 Mg/Ml Vial 2 Ml) 1 mg IVP Q15MIN PRN PRN Reason: BREAKTHROUGH SEIZURES Stop: 03/28/25 13:54 Potassium Phos/Sodium Phos (Naph,[facility] Mbdb 1 Packet (1.5 Gm)) 1 packet PO X1 ONE Stop: 03/23/25 13:58 Last Admin: 03/23/25 17:33 Dose: 1 packet Assessment & Plan Plan Patient is a 75 year old male with a past medical history of Hypertension and history of abnormal MRI, likely early dementia, with previous history of single seizure who was admitted for seizure. #Acute encephaloapthy, likely secondary to seizure #Seizure #Ground Level Fall #Lactic Acidosis Patient presented with chief complain of seizure with one previous episode of seizure in patient's past medical history and lactic acid. Given typical seizure signs and symptoms and 2nd seizure, start Keppra 500 mg BID. MRI placed to rule out structural changes vs EEG ordered and prolactin to confirm seizure activity vs cardiac in nature, consider Echo. CT head negative TSH within normal limits. Lacitc Acid 4.5 Influenza Positive Plan -Keppra 500 mg BID (03/24/2025) -Consider adding Versed PRN for seizure precautions -May continue home medication -EEG ordered -MRI w/ and without contrast -Seizure precautions -Head of the bed, 30 degrees -Trend Lactic Acid #Pneumonia, Influenza A #HTN #[place] (?) - The patient's plan was discussed with attending Dr. Serina Rodrigez MD PGY2 Internal Medicine Attending Provider Attestation/Addendum I personally have seen and examined the patient at the bedside and agree with resident's findings, assessment and plan of care. Impression: Recurrent seizures: Given Versed, loaded with Keppra Hypertension Mild cognitive impairment/early dementia Plan/recommendations: continue with Keppra 500 mg twice a day, closely monitor for side effects including mood symptoms: Follow-up with MRI brain with and without contrast and EEG to evaluate further Follow seizure precautions and consider Versed for breakthrough seizure
[2025-03-23] MEDS: ACETAMINOPHEN 325 MG TABLET 650 MG PO (23:56)
[2025-03-24] VITALS: BP 151/98; PULSE 72; PULSE 74; RESP 11; TEMP 37.7; O2SAT 94
--- NOTE | 2025-03-24 | XR_ITS ---
Examination: MRI of brain without intravenous contrast. MRI brain with intravenous contrast. Date and time of exam:March 24, 2025 1357 hours Compared to 04/11/2024 INDICATIONS: Seizure episodes today Technique: Multiple axial and sagittal images of the brain to been obtained. Siemens high-resolution 1.52 Eufemia short bore scanner utilized. Sagittal sections, T1 weighted images, TR 500, TE 14, are performed. Axial sections proton-density and T2-weighted images have been obtained. Inversion recovery axial images, TR 9260, TE 111, TR 2500. Diffusion weighted images, axial sections, TR 4800, TE 128, B value 1000. Axial sections, ADC map, TR 4800, TE 128. Axial and coronal images were also obtained post 19 cc gadolinium administered intravenously. Findings:: Enlargement of the sella turcica is not present. The optic chiasm and infundibular stalk are not remarkable. There is no localized enlargement of the medulla or [place]. Fourth ventricle and cerebellar tonsils appear normal in position. No subacute area of hemorrhage density is seen. Fourth ventricle is midline. Mass in the cerebellopontine angle region is not evident. 7th and 8th nerve complexes exhibit symmetry Globes are symmetrical Orbital musculature including medial lateral rectus muscles do not exhibit abnormality Increased white matter signal is prominent Effacement of the cortical sulcal markings is not identified. Mass effect upon the ventricular system is not identified. Diffusion-weighted images demonstrate no focus of restricted diffusion Contrast images demonstrate no abnormal enhancement Impression: Negative for acute hemorrhage mass effect or midline shift No acute infarct Prominent chronic microvascular white matter change
[2025-03-24 04:00] VITALS: BP 150/86; PULSE 64; PULSE 66; RESP 20; TEMP 37.2; O2SAT 94
[2025-03-24 04:45] VITALS: BMI 30.3
[2025-03-24 06:29] LABS: Basophils # (Auto) 0.0 Thou/mm3 (0.0-0.2); Basophils % (Auto) 0 % (0-2.5); Eosinophils # (Auto) 0.1 Thou/mm3 (0.0-0.5); Eosinophils % (Auto) 1 % (0-10); Hematocrit 42.8 % (41.0-53.0); Hemoglobin 14.7 g/dL (13.5-16.0); Immature Granulocytes Auto 0.04 Thou/mm3 (0.00-0.00); Lymphocytes # (Auto) 2.3 Thou/mm3 (1.0-4.8); Lymphocytes % (Auto) 22 % (10-50); Mean Corpuscular HGB Conc 34.3 g/dl (31.0-37.0); Mean Corpuscular Hemoglobin 30.2 pg (25.0-35.0); Mean Corpuscular Volume 88 fL (80-100); Monocytes # (Auto) 1.0 Thou/mm3 (0.0-0.8); Monocytes % (Auto) 10 % (0-12); Neutrophils # (Auto) 7.0 Thou/mm3 (1.8-7.7); Neutrophils % (Auto) 67 % (37-80); Nucleated Red Blood Cell # 0.00 Thou/mm3 (0.00-0.00); Nucleated Red Blood Cell % 0 /100 WBC (0); Platelet Count 156 Thou/mm3 (140-440); RDW Standard Deviation 42.5 fL (35.1-43.9); Red Blood Count 4.86 Miln/mm3 (4.50-5.90); White Blood Count 10.5 Thou/mm3 (3.8-10.6)
[2025-03-24 06:40] LABS: Alanine Aminotransferase 13 U/L (10-49); Albumin, Serum 4.3 gm/dL (3.4-4.8); Albumin/Globulin Ratio 2.2 (1.2-2.2); Alkaline Phosphatase 49 U/L (46-116); Anion Gap 11 (7-16); Aspartate Amino Transferase 28 U/L (0-34); BUN/Creatinine Ratio 8 Ratio (12-20); Bilirubin,Total 1.0 mg/dL (0.3-1.2); Blood Urea Nitrogen 9 mg/dL (9-23); Calcium 9.4 mg/dL (8.3-10.6); Calcium (Corrected) 9.4 mg/dL (8.5-10.1); Carbon Dioxide 26.2 mMol/L (20.0-31.0); Chloride 107 mMol/L (98-107); Creatinine (Component) 1.2 mg/dL (0.6-1.3); Estimated Creatinine Clearance 60.9 mL/min (>60); Globulin 2.0 gm/dL (2.3-3.5); Glucose 85 mg/dL (74-106); Magnesium 2.2 mg/dL (1.6-2.6); Osmolality,Calculated 284 (275-295); Phosphorous 2.9 mg/dL (2.4-5.1); Potassium 3.9 mMol/L (3.4-5.1); Sodium 144 mMol/L (136-145); Total Protein 6.3 gm/dL (5.7-8.2); eGFR > 60 See Note
[2025-03-24 07:31] VITALS: PULSE 61; RESP 18; RESP 92
[2025-03-24 08:00] VITALS: BP 119/77; PULSE 58; PULSE 59; RESP 16; TEMP 36.6; O2SAT 95
--- NOTE | 2025-03-24 09:41 | PCS.ST ---
No formal speech or swallow evaluation is warranted at this time. Pt observed tolerating regular diet. Baseline cognitive/communication.
--- NOTE | 2025-03-24 10:33 | RESP.EEG ---
EEG complete and ready to read.
[2025-03-24] MEDS: HEPARIN SOD INJ 5000 UNIT/ML VIAL SC (10:48)
[2025-03-24] MEDS: OSELTAMIVIR 75 MG CAPSULE PO (10:48)
[2025-03-24 11:01] VITALS: BMI 30.2
--- NOTE | 2025-03-24 11:28 | PD.RESPRO ---
Documentation for date of: 03/24/25 Subjective Subjective Interval history: No acute event overnight, except for high blood pressure of 150/86, no symptoms nor pain. Patient was seen and examined at bedside. No acute complains except for left shoulder status post ground level fall. AM labs reviewed. Lactate downtrended from 4.5 to 1.8. Vitals are within normal limits. EEG done, pending read. Undergoing MRI today. Per neurology started him on Keppra 500mg BID PO Exam Vital Signs Temp Pulse Resp BP Pulse Ox O2 Del Method O2 Flow Rate 97.9 F 59 L 16 119/77 95 Room Air 3 03/24/25 08:00 03/24/25 08:00 03/24/25 08:00 03/24/25 08:00 03/24/25 08:00 03/24/25 08:00 03/23/25 17:10 Narrative Exam General: Awake and in no acute distress. Conversational and non-toxic appearing. HEENT: 1cm laceration nonbleeding to left forehead. Normocephalic, mucous membranes moist. Heart: Regular rate and rhythm, normal S1 and S2, no murmurs. Lungs: Clear to auscultation with no wheezing or crackles. Abdomen: Soft, nondistended, nontender, positive bowel sounds. ?No guarding or rebound tenderness. Neurologic: Alert and oriented x3, no gross neurological deficit, and patient able to move all 4 extremities. Extremities: limited range of motion of Left shoulder(due to fall) No edema. Skin: No rash or ecchymoses. Objective Labs 03/24/25 05:31 03/24/25 05:31 Labs: Laboratory Results - last 24 hr 03/23/25 03/23/25 03/23/25 12:14 13:14 16:47 WBC RBC Hgb Hct MCV MCH MCHC RDW Std Deviation Plt Count Neut % (Auto) Lymph % (Auto) [place] % (Auto) Eos % (Auto) Baso % (Auto) Neut # (Auto) Lymph # (Auto) [place] # (Auto) Eos # (Auto) Baso # (Auto) Immature Gran # (Auto) Absolute Nucleated RBC Immature Gran % Nucleated RBC % ESR 2 VBG pH 7.33 VBG pCO2 39 VBG pO2 50 VBG O2 Sat (Rema) 83 L VBG Base Excess -5 L Sodium Potassium Chloride Carbon Dioxide Anion Gap BUN Creatinine Estim Creat Clear Calc eGFR BUN/Creatinine Ratio Glucose Calculated Osmolality Lactic Acid 4.5 H* 1.8 Calcium Corrected Calcium Phosphorus 1.9 L Magnesium 2.0 Total Bilirubin AST ALT Alkaline Phosphatase Total Creatine Kinase 73 C-Reactive Prot, Quant < 0.5 Total Protein Albumin Globulin Albumin/Globulin Ratio Vitamin B12 537 Ur Collection Type Catheter Urine Color Yellow Urine Clarity Clear Urine pH 6.5 Ur Specific [place] 1.017 Urine Protein 1+ A Urine Glucose (UA) Negative Urine Ketones Negative Urine Blood Negative Urine Nitrite Negative Urine Bilirubin Negative Urine Urobilinogen (Auto) Negative Ur Leukocyte Esterase Negative Urine RBC 2 Urine WBC 4 Ur Squamous Epith Cells 0 Urine Bacteria None Hyaline Casts < 1 Ur Culture Indicated? Not Indicated Urine Opiates Screen Negative Urine Fentanyl Screen Negative Ur Barbiturates Screen Negative U Amphetamin/Meth Scrn Negative U Benzodiazepines Scrn Negative U Cocaine Metab Screen Negative U Marijuana (THC) Screen Negative Blood Type Antibody Screen Blood Bank Wristband ID 03/23/25 03/24/25 17:35 05:31 WBC 10.5 RBC 4.86 Hgb 14.7 Hct 42.8 MCV 88 MCH 30.2 MCHC 34.3 RDW Std Deviation 42.5 Plt Count 156 Neut % (Auto) 67 Lymph % (Auto) 22 [place] % (Auto) 10 Eos % (Auto) 1 Baso % (Auto) 0 Neut # (Auto) 7.0 Lymph # (Auto) 2.3 [place] # (Auto) 1.0 H Eos # (Auto) 0.1 Baso # (Auto) 0.0 Immature Gran # (Auto) 0.04 H Absolute Nucleated RBC 0.00 Immature Gran % 0 Nucleated RBC % 0 ESR VBG pH VBG pCO2 VBG pO2 VBG O2 Sat (Rema) VBG Base Excess Sodium 144 Potassium 3.9 D Chloride 107 Carbon Dioxide 26.2 Anion Gap 11 BUN 9 Creatinine 1.2 Estim Creat Clear Calc 60.9 L eGFR > 60 BUN/Creatinine Ratio 8 L Glucose 85 Calculated Osmolality 284 Lactic Acid Calcium 9.4 Corrected Calcium 9.4 Phosphorus 2.9 Magnesium 2.2 Total Bilirubin 1.0 AST 28 ALT 13 Alkaline Phosphatase 49 Total Creatine Kinase C-Reactive Prot, Quant Total Protein 6.3 Albumin 4.3 Globulin 2.0 L Albumin/Globulin Ratio 2.2 Vitamin B12 Ur Collection Type Urine Color Urine Clarity Urine pH Ur Specific [place] Urine Protein Urine Glucose (UA) Urine Ketones Urine Blood Urine Nitrite Urine Bilirubin Urine Urobilinogen (Auto) Ur Leukocyte Esterase Urine RBC Urine WBC Ur Squamous Epith Cells Urine Bacteria Hyaline Casts Ur Culture Indicated? Urine Opiates Screen Urine Fentanyl Screen Ur Barbiturates Screen U Amphetamin/Meth Scrn U Benzodiazepines Scrn U Cocaine Metab Screen U Marijuana (THC) Screen Blood Type O Positive Antibody Screen NEGATIVE Blood Bank Wristband ID Yes ABG Interpretation ABG results: 03/23/25 13:14 VBG pH 7.33 VBG pCO2 39 VBG pO2 50 VBG Base Excess -5 L Quality Measures Quality Measures none Advance care planning discussed with:: patient and spouse Assessment & Plan Assessment Current Active Medications: Generic Name Dose Route Start Last Admin Trade Name Freq PRN Reason Stop Dose Admin Acetaminophen 650 mg 03/23/25 13:46 03/23/25 23:56 Acetaminophen 325 Mg Tablet PO 04/22/25 13:45 650 mg Q6H PRN Administration Fever >101.5 Diazepam 5 mg 03/23/25 14:37 Diazepam Inj 5 Mg/Ml Vial 2 Ml IVP Q15MIN PRN Seizure Activity Heparin Sodium (Porcine) 5,000 unit 03/23/25 14:00 03/24/25 10:48 Heparin Sod Inj 5000 Unit/Ml Vial SC 04/06/25 13:59 5,000 unit Q12HR DINO Administration Levetiracetam 500 mg 03/24/25 09:00 03/24/25 10:48 Levetiracetam 250 Mg Tablet PO 04/23/25 08:59 500 mg BID DINO Administration Ondansetron HCl 4 mg 03/23/25 13:51 Ondansetron Inj 2 Mg/Ml Inj 2 Ml IVP 04/22/25 13:50 Q6H PRN NAUSEA OR VOMITING Protocol Oseltamivir Phosphate 75 mg 03/23/25 14:45 03/24/25 10:48 Oseltamivir 75 Mg Capsule PO 03/30/25 14:44 75 mg BID DINO Administration Pantoprazole Sodium 40 mg 03/24/25 09:00 03/24/25 10:46 Pantoprazole Inj 40 Mg Vial IVP 04/23/25 08:59 40 mg QDAY DINO Administration Plan Mr. Trinidad a 75-year-old male past medical significant for hypertension BIBA to ED on 03/23/25 for altered mental status and unwitnessed seizure. Admitted for seizure workup and management. #Witnessed tonic-clonic seizures episode #Acute Encephalopathy 2/- improving # Influenza A positive #Status post fall Patient has history of seizure episodes in 2023 for which he follows with Dr. Smalls. Followed outpatient after 1 episode of seizure in 2023 not on any seizure medication. Today patient has weakness around 4 in the morning, and weakness, possibly had a seizure episode at home per family. Witnessed tonic-clonic seizure in the ED. On admission mental status was altered and oriented x2. Underlying acute encephalopathy likely due to seizures, possible underlying viral infectious etiology, Head CT is negative, electrolytes within normal limit, utox negative Patient currently requiring supplemental oxygen, likely secondary to Versed, will wean off Chest x-ray unremarkable for underlying pneumonia, incidentally found to be flu positive in the emergency department Reports fall at home, complains of some pain in left shoulder, cervical spine CT and humerus x-ray unremarkable Plan - Continue on oseltamivir 75 mg p.o. twice daily (03/23/25)- - Diazepam 5 mg IVP Q15min PRN for seizure - EEG done, pending read - Neurology consulted, recommendation appreciated- keppra 500mg BID, MRI today - Neuro check Q4 - Swallow screen test - Seizure precautions - Aspiration precaution - Physical therapy referral - Speech therapy referral - Ringer lactate maintenance 1L IVF, discontinued #Elevated lactate- improving Likely secondary to seizure episode, ?Flu positive Lactate 4.5, was given 1 L fluid bolus - Monitor follow-up lactic # Primary hypertension Patient has a history of hypertension for which she is well-controlled on medication. On home medication amlodipine 5 mg. Plan - Hold home meds since BP is well controlled, resume if needed #?Dementia/depression Patient medicine list include medications such as vortioxetine, rivastigmine started by PCP. Patient and his unclear about the reason for these medications. Plan - Will consider reaching out to PCP Hospital management: Lines: peripheral IV Diet: Regular Bowel: NA GI prophylaxis: Protonix 40 mg IVP DVT prophylaxis: Heparin SC Disposition: tele for seizure precaution CODE STATUS: Full code Patient seen and assessed under supervision of attending physician Dr. Radha Thomason MD PGY-1, Internal Medicine Attending Provider Attestation/Addendum I attest that I was physically present for the evaluation, physical examination, lab and imaging review of the patient with the residents. I discussed the case with the residents and agree with the findings and plans of care as documented above. Dhiraj Garcia MD
[2025-03-24 12:00] VITALS: BP 127/88; PULSE 61; RESP 17; TEMP 37.1; O2SAT 94
--- NOTE | 2025-03-24 15:35 | PC.SS ---
Rounding: Still experiencing abd pain, DC plan home
[2025-03-24 16:00] VITALS: BP 122/80; PULSE 66; RESP 21; TEMP 36.8; O2SAT 94
--- NOTE | 2025-03-24 20:52 | ESDS_ITS ---
Planned Discharge Date 03/24/25 DS: Providers Provider Date of admission: 03/23/25 13:47 Primary care physician: Luca Cabezas MD Admitting Provider: Dhiraj Garcia MD Attending Provider on Admission: Dhiraj Garcia MD Consults: 03/23/25 13:54 Consult to Neurology / Tele-Neurology Stat Comment: Seizures Consulting Provider: Gustabo Smalls 03/23/25 14:47 Referral Speech Therapy Routine Comment: 03/23/25 14:48 Referral Physical Therapy Routine Comment: Physician Instructions: Attending Provider on DC: Dhiraj Mcnamara MD Discharging Provider: Dhiraj Max MD Anticipated date of discharge: 03/24/25 DS: Diagnosis Problem List Completed Was Problem List Reviewed/Reconciled?: Yes Hospital Course Hospital Course Hospital course: Summary Mr. Trinidad a 75-year-old male past medical significant for hypertension BIBA to the [facility] ED on 03/23/25 for altered mental status and unwitnessed s eizure. Admitted for seizure workup and management. In the ED CT spine was negative for acute fracture, CT was negative for acute hemorrhage, chest x-ray negative, humerus x-ray negative shoulder fracture. Patient received 1L LR, Keppra, and Tdap vaccine. Tested positive for influenza A, started on oseltamivir 75 mg p.o. twice daily. Neurology consulted, recommended EEG and MRI which were negative. During the hospital stay patient mentation improved significantly and other problems were managed and his condition improved remarkably with progression of hospital course. Patient to continue with Keppra 500 mg twice daily, and follow-up with neurologist within 1 week. Continue with Oseltamivir outpatient until completion of course. Further plan to discharge the patient home since he is hemodynamically stable to be discharged home to self care with the following instructions. Discharge recommendation: Follow up with PCP within 1 week of discharge, if you do not have a primary care physician you can come see us at the [facility] by calling [phone] - Please follow up with neurologist Dr. Smalls within 1 week you have been started on anti-seizure medication to take twice daily -You have been precribed a medication for your flu for 4 more days to take -Continue rest of medications as previously prescribed -Return to the ED or call EMS if symptoms return and/or worsen Hospital Diagnoses: #Witnessed tonic-clonic seizures episode #Acute Encephalopathy 2/2- improving # Influenza A positive #Status post fall #Elevated lactate- improving # Primary hypertension #?Dementia/depression Patient seen and assessed under supervision of attending physician . Luzmaria Thomason MD PGY-1, Internal Medicine Time Spent with Patient Time attestation: Total time spent providing and/or coordinating discharge services: 33 min Time spent: Greater than 30 minutes Exam Vital Signs Temp Pulse Resp BP Pulse Ox O2 Del Method O2 Flow Rate 98.3 F 66 21 H 122/80 94 L Room Air 3 03/24/25 16:00 03/24/25 16:00 03/24/25 16:00 03/24/25 16:00 03/24/25 16:00 03/24/25 16:00 03/23/25 17:10 Discharge Plan Plan Patient Disposition: HOME (Self Care) Patient condition on transfer: Stable Care Plan Goals: -Follow up with PCP within 1 week of discharge, if you do not have a primary care physician you can come see us at the [facility] by calling [phone] - Please follow up with neurologist Dr. Smalls within 1 week you have been started on anti-seizure medication to take twice daily -You have been precribed a medication for your flu for 4 more days to take -Continue rest of medications as previously prescribed -Return to the ED or call EMS if symptoms return and/or worsen Prescriptions/Referrals Prescriptions/Med Rec: New oseltamivir 75 mg Capsule 75 mg PO BID 4 Days Qty: 8 0RF levetiracetam 500 mg tablet 500 mg PO BID 30 Days Qty: 60 0RF Continued rivastigmine tartrate 1.5 mg capsule 1.5 mg PO BID Patient Comments: TAKE 1 CAPSULE BY MOUTH TWICE A DAY amlodipine 5 mg tablet 5 mg PO QDAY Patient Comments: TAKE 1 TABLET BY MOUTH EVERY DAY Trintellix 5 mg tablet 5 mg PO DAILY Patient Comments: TAKE 1 TABLET BY MOUTH EVERY DAY Referrals: Luca Cabezas MD [Primary Care Provider] - Patient/Caregiver Discharge Instructions Education Materials: Treating Epilepsy: Medicines, Epilepsy: Safety During a Seizure, Seizures and Epilepsy, Healthy Sleep Habits Print Language: Maltese Stand Alone Forms: Merle Award Info., Patient Portal Info Letter Discharge Order Discharge Orders: Discharge (Routine); Ordered 03/24/25 Ordered By: Yoselin Mckenna Quality Discharge Quality Measures VTE prophylaxis Attestestation MD Attestation I attest that I was physically present for the evaluation, physical examination, lab and imaging review of the patient with the residents. I discussed the case with the residents and agree with the findings and plans of care as documented above. Dhiraj Garcia MD
--- NOTE | 2025-03-24 23:09 | PD.NEUROPROG ---
Documentation for date of: 03/24/25 Subjective Subjective Interval history: Patient is in telemetry, no seizures reported after admission. No new symptoms noted overnight. Exam - Neurology Vital Signs Temp Pulse Resp BP Pulse Ox O2 Del Method O2 Flow Rate 98.3 F 66 21 H 122/80 94 L Room Air 3 03/24/25 16:00 03/24/25 16:00 03/24/25 16:00 03/24/25 16:00 03/24/25 16:00 03/24/25 16:00 03/23/25 17:10 Narrative Exam GENERAL APPEARANCE: Well hydrated, well-nourished in no acute distress. HEENT: Normocephalic, atraumatic, extraocular movements intact. Pupils: Equal reacting to light and accommodation NECK: Supple, no JVD or bruits. CARDIOVASULAR: Heart: S1, S2 heard, regular without S3-S4 or murmur no rubs or gallops. LUNGS/CHEST: Clear to auscultation bilaterally. No rails, rhonchi, or wheezing. Normal inspection. ABDOMEN: Soft, nontender, with normal bowel sounds. No pulsatile masses. No rebound, rigidity, or guarding. Normal inspection and palpation. EXTREMITIES: Normal inspection and palpation. No edema, clubbing or cyanosis. SKIN: Warm and dry without rashes. Normal inspection. MUSCULOSKELETAL: No cervical, thoracic, lumbar or midline bony tenderness. Normal inspection. NEURO: Alert, awake and oriented x3. Cranial nerves: II through XII grossly intact. Speech and language: Normal with no dysarthria or dysphasia. Motor system: Tone and bulk: Normal: Strength: 5 out of 5 in all 4 extremities; No pronator drift noted. Deep tendon reflexes: 2+ bilaterally symmetrical. Plantar reflex: Downgoing bilaterally. Sensory system: Intact to all modalities of sensation bilaterally. Coordination: Intact to [id number] and [id number] test bilaterally. No ataxia, no dysmetria, or dysdiadochokinesia noted. No intention tremors noted. Gait: Normal. Toe, heel, tandem walk all are normal. Romberg: Negative. No signs of meningeal irritation noted. PSYCHIATRIC: Normal mood and affect. Objective Labs 03/24/25 05:31 03/24/25 05:31 Labs: Laboratory Results - last 24 hr 03/24/25 05:31 WBC 10.5 RBC 4.86 Hgb 14.7 Hct 42.8 MCV 88 MCH 30.2 MCHC 34.3 RDW Std Deviation 42.5 Plt Count 156 Neut % (Auto) 67 Lymph % (Auto) 22 [place] % (Auto) 10 Eos % (Auto) 1 Baso % (Auto) 0 Neut # (Auto) 7.0 Lymph # (Auto) 2.3 [place] # (Auto) 1.0 H Eos # (Auto) 0.1 Baso # (Auto) 0.0 Immature Gran # (Auto) 0.04 H Absolute Nucleated RBC 0.00 Immature Gran % 0 Nucleated RBC % 0 Sodium 144 Potassium 3.9 D Chloride 107 Carbon Dioxide 26.2 Anion Gap 11 BUN 9 Creatinine 1.2 Estim Creat Clear Calc 60.9 L eGFR > 60 BUN/Creatinine Ratio 8 L Glucose 85 Calculated Osmolality 284 Calcium 9.4 Corrected Calcium 9.4 Phosphorus 2.9 Magnesium 2.2 Total Bilirubin 1.0 AST 28 ALT 13 Alkaline Phosphatase 49 Total Protein 6.3 Albumin 4.3 Globulin 2.0 L Albumin/Globulin Ratio 2.2 ABG Interpretation ABG results: 03/23/25 13:14 VBG pH 7.33 VBG pCO2 39 VBG pO2 50 VBG Base Excess -5 L Assessment & Plan Additional Assessment & Plan Additional Plan: Patient is a 75 year old male with a past medical history of Hypertension and history of abnormal MRI, likely early dementia, with previous history of single seizure who was admitted for seizure. #Acute encephaloapthy, likely secondary to seizure #Seizure #Ground Level Fall #Lactic Acidosis Patient presented with chief complain of seizure with one previous episode of seizure in patient's past medical history and lactic acid. Given typical seizure signs and symptoms and 2nd seizure, start Keppra 500 mg BID. MRI placed to rule out structural changes and EEG ordered. CT head negative TSH within normal limits. Lacitc Acid 4.5 Influenza Positive Plan -Keppra 500 mg BID (03/24/2025) - MRI brain showed chronic prominent periventricular white matter changes consistent with early vascular dementia unchanged from before EEG showed bitemporal epileptiform discharges consistent with seizures No driving advised until cleared by neurology. Patient is stable for discharge home on current home meds including Trintellix, amlodipine and Xarelto
[2025-03-29 06:31] LABS: Prolactin* 22.7 ng/mL (2.0-18.0)
== END 2025-03-24 17:54 | disposition home or self-care (01) | DRG 101 ==
LOC: SERX 12:11 → SERHOLD 14:06 → S2NX 16:18
PROVIDERS: Admitting Provider Student in an Organized Health Care Education/Training Program; Emergency Provider Emergency Medicine; PCP Family Medicine; Visit Provider Student in an Organized Health Care Education/Training Program
DX: G40.909 Epilepsy, unspecified, not intractable, without status epilepticus (principal); G93.40 Encephalopathy, unspecified; E87.20 Acidosis, unspecified; J10.1 Influenza due to other identified influenza virus with other respiratory manifestations; I10 Essential (primary) hypertension; F32.A Depression, unspecified; M25.512 Pain in left shoulder; S01.91XA Laceration without foreign body of unspecified part of head, initial encounter; W18.30XA Fall on same level, unspecified, initial encounter; Y92.009 Unspecified place in unspecified non-institutional (private) residence as the place of occurrence of the external cause; Z23 Encounter for immunization; Z79.899 Other long term (current) drug therapy
CPT/HCPCS: 36415; 70450; 70553; 71045; 72125; 73060; 80053; 80307; 80329; 81001; 82140; 82550; 82607; 82803; 83605; 83735; 84100; 84146; 84436; 84443; 84484; 85025; 85610; 85652; 86140; 86850; 86900; 86901; 87400; 87811; 90715; 93005; 95816; 97162; 99284; A9577; J1644; J1953; J2250; J2470; J7120; A9270; G0480

== ENCOUNTER → 2025-06-28 | Outpatient (CLI) | payer MEDICARE, BC, SELFPAY ==
--- NOTE | 2025-06-28 08:30 | XR_ITS ---
EXAMINATION: MR shoulder LT wo con ORDERING PROVIDER: Luca Cabezas MD HISTORY: Pain in left shoulder TECHNIQUE: Multiplanar multisequence magnetic resonance images were obtained of the left shoulder without contrast. Examination is markedly motion degraded. COMPARISON: None. FINDINGS: ACROMIOCLAVICULAR JOINT: Moderate degenerative changes. Non-hooked. GLENOHUMERAL JOINT: Moderate degenerative changes with thinning of the cartilage. High riding humeral head with accentuated internal rotation. MARROW SIGNAL: Mild heterogeneity. Query history of smoking. No marrow edema identified. ROTATOR CUFF: Subscapularis: Increased T2 signal. Approximately 50% tear articular side. Supraspinatus: Complete tear with proximal retraction. Infraspinatus: Complete tear versus near complete tear with a few residual fibers. Fatty atrophy and partial retraction. Teres Minor: Some mild edema. No gross tear. MUSCLES: Atrophy as above. ROTATOR INTERVAL: Edema. LABRUM: Significant degenerative changes. Motion degraded. BICEPS TENDON: Thickened with increased T2 signal. SOFT TISSUES: Edema. IMPRESSION: 1. Complete tear with retraction of the supraspinatus tendon and at least near complete tear of the infraspinatus tendon with resultant high riding humeral head. 2. Subscapularis tendon articular sided 50% tear. 3. Degenerative labrum. 4. Biceps tendinosis.
== END | disposition home or self-care (01) ==
PROVIDERS: PCP Family Medicine; Referring Provider Family Medicine; Visit Provider Family Medicine
DX: M75.102 Unspecified rotator cuff tear or rupture of left shoulder, not specified as traumatic (principal); S46.812A Strain of other muscles, fascia and tendons at shoulder and upper arm level, left arm, initial encounter; X58.XXXA Exposure to other specified factors, initial encounter
CPT/HCPCS: 73221